=== PATIENT | female | born 1970 | race Caucasian/White ===

== ENCOUNTER 2020-06-08 07:01 | Observation (INO) ==
[2020-06-08] MEDS ORDERED: Ondansetron 4 MG/2 ML VIAL IVP PRN ×2 (09:30→21:35)
[2020-06-08] MEDS: 0.9 % Sodium Chloride 1,000 ML IVC SCH ×3 (10:09→22:57)
[2020-06-08] MEDS ORDERED: Piperacillin/Tazobactam 3.375 GM in 0.9 % Sodium Chloride Mini Bag 100 ML IVPB SCH (14:00)
[2020-06-08] MEDS ORDERED: *HR* Propofol 200 MG/20 ML VIAL IVP ONE (19:02)
[2020-06-08] MEDS ORDERED: *HR* FentaNYL (PF) 100 MCG/2 ML VIAL ONE (19:02)
[2020-06-08] MEDS ORDERED: Ondansetron 4 MG/2 ML VIAL ONE (19:03)
[2020-06-08] MEDS ORDERED: Dexamethasone 4 MG/ML VIAL ONE (19:03)
[2020-06-08] MEDS ORDERED: *HR* Rocuronium Bromide 50 MG/5 ML VIAL ONE (19:03)
[2020-06-08] MEDS ORDERED: Lidocaine -MPF 2% 2 ML VIAL ONE (19:03)
[2020-06-08] MEDS ORDERED: Lidocaine -MPF 4% 5 ML AMPUL ONE (19:03)
[2020-06-08] MEDS ORDERED: Bupivacaine 0.5%-Epi 1:200,000 50 ML VIAL ONE (19:07)
[2020-06-08] MEDS ORDERED: Acetaminophen IV 1,000 MG/100 ML INFUS..BTL ONE (19:14)
[2020-06-08] MEDS ORDERED: *HR* HYDROMORPHONE 2 MG/ML VIAL ONE (20:43)
[2020-06-08] MEDS ORDERED: Ketorolac 30 MG/ML VIAL ONE (21:17)
[2020-06-08] MEDS ORDERED: Sugammadex Sodium 200 MG/2 ML VIAL IV ONE (21:17)
[2020-06-08] MEDS ORDERED: Promethazine 6.25 MG in Water for inj. (sterile) 20 ML IVPB PRN (21:39)
[2020-06-08] MEDS ORDERED: *HR* HYDROmorphone (PF) 1 MG/ML SYRINGE IVP PRN (21:40)
[2020-06-08] MEDS ORDERED: Acetaminophen IV 1,000 MG/100 ML INFUS..BTL IVPB ONE (21:40)
[2020-06-08] MEDS ORDERED: Scopolamine Patch 1.5 MG PATCH.TD72 TD ONE (21:45)
[2020-06-08] MEDS ORDERED: *HR* Labetalol 20 MG/4 ML SYRINGE IVP PRN (21:45)
[2020-06-08] MEDS ORDERED: *HR* OxyCODONE Immed Rel 5 MG TABLET PO PRN (21:45)
[2020-06-08] MEDS: Piperacillin/Tazobactam 3.375 GM in 0.9 % Sodium Chloride Mini Bag 100 ML IVPB SCH (22:58)
[2020-06-09] MEDS: Ketorolac 15 MG/ML VIAL IVP SCH ×2 (01:30→04:35)
[2020-06-09] MEDS: *HR* OxyCODONE/APAP 5/325 TABLET PO PRN ×2 (03:49→09:40)
[2020-06-09] MEDS: 0.9 % Sodium Chloride 1,000 ML IVC SCH (05:12)
[2020-06-09] MEDS: Piperacillin/Tazobactam 3.375 GM in 0.9 % Sodium Chloride Mini Bag 100 ML IVPB SCH (05:12)
[2020-06-09 08:03] VITALS: BP 96/66
== END 2020-06-09 12:14 | disposition home or self-care (01) ==
LOC: 2ANU
PROVIDERS: ADMIT Surgery; ATTEND Surgery